=== PATIENT | female | born 1955 | race Caucasian/White ===

== ENCOUNTER → 2024-03-23 12:16 | Outpatient (REF) | payer BC, SELFPAY ==
[2024-03-23 12:58] LABS: % Basophils 0.9 % (0-2); % Eosinophils 2.4 % (0-6); % Immature Granulocytes 0.5 % (0-0.5); % Lymphocytes 40.1 % (20.5-51.1); % Monocytes 9.3 % (1.7-9.3); % Neutrophils 46.8 % (42.2-75.2); Absolute Basophils 0.1 10^3/uL (0-0.2); Absolute Eosinophils 0.2 10^3/uL (0-0.7); Absolute Lymphocytes 2.6 10^3/uL (1.2-3.4); Absolute Monocytes 0.6 10^3/uL (0.1-0.6); Absolute Neutrophils 3.1 10^3/uL (1.4-6.5); Hematocrit 40.2 % (37.0-47.0); Hemoglobin 13.4 g/dL (12.0-16.0); Mean Corp Hgb Conc. 33.3 g/dL (33.0-37.0); Mean Corpuscular Hgb 29.2 pg (27.0-31.0); Mean Corpuscular Volume 87.6 fL (81.0-99.0); Nucleated Red Blood Cells % 0 %; Red Blood Cell Count 4.59 10^6/uL (4.20-5.40); Red Cell Dist. Width 12.9 % (11.5-14.5); White Blood Cell Count 6.5 10^3/uL (4.8-10.8)
[2024-03-23 13:33] LABS: Mean Platelet Volume 11.6 fL (7.4-10.4); Platelet Count 17 10^3/uL (130-400)
== END ==
LOC: REG 12:16
PROVIDERS: ATTENDING PHYSICIAN Student in an Organized Health Care Education/Training Program
DX: D69.3 Immune thrombocytopenic purpura (principal)
CPT/HCPCS: 36415; 85025

== ENCOUNTER → 2024-04-06 09:16 | Outpatient (REF) | payer BC, SELFPAY ==
[2024-04-06 10:07] LABS: % Basophils 0.7 % (0-2); % Eosinophils 2.1 % (0-6); % Immature Granulocytes 0.8 % (0-0.5); % Lymphocytes 26.5 % (20.5-51.1); % Monocytes 9.4 % (1.7-9.3); % Neutrophils 60.5 % (42.2-75.2); Absolute Basophils 0.1 10^3/uL (0-0.2); Absolute Eosinophils 0.2 10^3/uL (0-0.7); Absolute Immature Granulocytes 0.1 10^3/uL (0-0.05); Absolute Lymphocytes 2.3 10^3/uL (1.2-3.4); Absolute Monocytes 0.8 10^3/uL (0.1-0.6); Absolute Neutrophils 5.3 10^3/uL (1.4-6.5); Hematocrit 41.7 % (37.0-47.0); Hemoglobin 13.7 g/dL (12.0-16.0); Mean Corp Hgb Conc. 32.9 g/dL (33.0-37.0); Mean Corpuscular Volume 88.3 fL (81.0-99.0); Mean Platelet Volume 10.4 fL (7.4-10.4); Nucleated Red Blood Cells % 0 %; Platelet Count 47 10^3/uL (130-400); Red Blood Cell Count 4.72 10^6/uL (4.20-5.40); Red Cell Dist. Width 13.3 % (11.5-14.5); White Blood Cell Count 8.7 10^3/uL (4.8-10.8)
== END ==
LOC: REG 09:16
PROVIDERS: ATTENDING PHYSICIAN Internal Medicine Hematology & Oncology; FAMILY PHYSICIAN Family Medicine
DX: D69.49 Other primary thrombocytopenia (principal); C91.Z0 Other lymphoid leukemia not having achieved remission
CPT/HCPCS: 36415; 85025

== ENCOUNTER → 2024-04-13 10:06 | Outpatient (REF) | payer BC, SELFPAY ==
[2024-04-13 10:55] LABS: % Basophils 1.2 % (0-2); % Eosinophils 2.7 % (0-6); % Immature Granulocytes 0.5 % (0-0.5); % Lymphocytes 33.3 % (20.5-51.1); % Monocytes 7.5 % (1.7-9.3); % Neutrophils 54.8 % (42.2-75.2); Absolute Basophils 0.1 10^3/uL (0-0.2); Absolute Eosinophils 0.2 10^3/uL (0-0.7); Absolute Monocytes 0.5 10^3/uL (0.1-0.6); Absolute Neutrophils 3.3 10^3/uL (1.4-6.5); Hematocrit 39.4 % (37.0-47.0); Hemoglobin 13.5 g/dL (12.0-16.0); Mean Corp Hgb Conc. 34.3 g/dL (33.0-37.0); Mean Corpuscular Hgb 29.4 pg (27.0-31.0); Mean Corpuscular Volume 85.8 fL (81.0-99.0); Nucleated Red Blood Cells % 0 %; Red Blood Cell Count 4.59 10^6/uL (4.20-5.40); Red Cell Dist. Width 13.5 % (11.5-14.5)
[2024-04-13 11:25] LABS: Mean Platelet Volume 12.3 fL (7.4-10.4)
[2024-04-13 11:38] LABS: Platelet Count 25 10^3/uL (130-400)
== END ==
LOC: REG 10:06
PROVIDERS: ATTENDING PHYSICIAN Internal Medicine Hematology & Oncology
DX: D69.49 Other primary thrombocytopenia (principal); C91.Z0 Other lymphoid leukemia not having achieved remission
CPT/HCPCS: 36415; 85025

== ENCOUNTER → 2024-04-25 08:22 | Outpatient (REF) | payer BC, SELFPAY ==
[2024-04-25 10:22] LABS: % Basophils 0.9 % (0-2); % Eosinophils 2.9 % (0-6); % Immature Granulocytes 1.7 % (0-0.5); % Lymphocytes 33.2 % (20.5-51.1); % Monocytes 8.4 % (1.7-9.3); % Neutrophils 52.9 % (42.2-75.2); Absolute Basophils 0.1 10^3/uL (0-0.2); Absolute Eosinophils 0.2 10^3/uL (0-0.7); Absolute Immature Granulocytes 0.1 10^3/uL (0-0.05); Absolute Lymphocytes 2.5 10^3/uL (1.2-3.4); Absolute Monocytes 0.6 10^3/uL (0.1-0.6); Hematocrit 39.7 % (37.0-47.0); Hemoglobin 13.4 g/dL (12.0-16.0); Mean Corp Hgb Conc. 33.8 g/dL (33.0-37.0); Mean Corpuscular Hgb 29.3 pg (27.0-31.0); Mean Corpuscular Volume 86.7 fL (81.0-99.0); Nucleated Red Blood Cells % 0 %; Platelet Count 472 10^3/uL (130-400); Red Blood Cell Count 4.58 10^6/uL (4.20-5.40); Red Cell Dist. Width 13.6 % (11.5-14.5); White Blood Cell Count 7.5 10^3/uL (4.8-10.8)
== END ==
LOC: REG 08:22
PROVIDERS: ATTENDING PHYSICIAN Internal Medicine Hematology & Oncology; FAMILY PHYSICIAN Family Medicine
DX: D69.49 Other primary thrombocytopenia (principal); C91.Z0 Other lymphoid leukemia not having achieved remission
CPT/HCPCS: 36415; 85025

== ENCOUNTER → 2024-04-27 08:37 | Outpatient (REF) | payer BC, SELFPAY ==
[2024-04-27 13:05] LABS: % Basophils 1.4 % (0-2); % Eosinophils 2.9 % (0-6); % Immature Granulocytes 0.8 % (0-0.5); % Lymphocytes 33.3 % (20.5-51.1); % Monocytes 9.1 % (1.7-9.3); % Neutrophils 52.5 % (42.2-75.2); Absolute Basophils 0.1 10^3/uL (0-0.2); Absolute Eosinophils 0.2 10^3/uL (0-0.7); Absolute Immature Granulocytes 0.1 10^3/uL (0-0.05); Absolute Lymphocytes 2.1 10^3/uL (1.2-3.4); Absolute Monocytes 0.6 10^3/uL (0.1-0.6); Absolute Neutrophils 3.3 10^3/uL (1.4-6.5); Hematocrit 40.6 % (37.0-47.0); Hemoglobin 13.1 g/dL (12.0-16.0); Mean Corp Hgb Conc. 32.3 g/dL (33.0-37.0); Mean Corpuscular Hgb 28.7 pg (27.0-31.0); Mean Corpuscular Volume 88.8 fL (81.0-99.0); Mean Platelet Volume 9.4 fL (7.4-10.4); Nucleated Red Blood Cells % 0 %; Platelet Count 473 10^3/uL (130-400); Red Blood Cell Count 4.57 10^6/uL (4.20-5.40); Red Cell Dist. Width 13.5 % (11.5-14.5); White Blood Cell Count 6.3 10^3/uL (4.8-10.8)
== END ==
LOC: HWLAB 08:37
PROVIDERS: ATTENDING PHYSICIAN Internal Medicine Hematology & Oncology; FAMILY PHYSICIAN Family Medicine
DX: D69.49 Other primary thrombocytopenia (principal); C91.Z0 Other lymphoid leukemia not having achieved remission
CPT/HCPCS: 36415; 85025

== ENCOUNTER → 2024-05-05 09:48 | Outpatient (REF) | payer BC, SELFPAY ==
[2024-05-05 10:55] LABS: % Basophils 0.6 % (0-2); % Eosinophils 1.4 % (0-6); % Immature Granulocytes 0.5 % (0-0.5); % Lymphocytes 23.8 % (20.5-51.1); % Monocytes 7.8 % (1.7-9.3); % Neutrophils 65.9 % (42.2-75.2); Absolute Basophils 0.1 10^3/uL (0-0.2); Absolute Eosinophils 0.2 10^3/uL (0-0.7); Absolute Immature Granulocytes 0.1 10^3/uL (0-0.05); Absolute Lymphocytes 2.6 10^3/uL (1.2-3.4); Absolute Monocytes 0.9 10^3/uL (0.1-0.6); Absolute Neutrophils 7.2 10^3/uL (1.4-6.5); Hematocrit 40.9 % (37.0-47.0); Hemoglobin 14.2 g/dL (12.0-16.0); Mean Corp Hgb Conc. 34.7 g/dL (33.0-37.0); Mean Corpuscular Hgb 29.5 pg (27.0-31.0); Nucleated Red Blood Cells % 0 %; Red Blood Cell Count 4.81 10^6/uL (4.20-5.40); Red Cell Dist. Width 13.2 % (11.5-14.5); White Blood Cell Count 10.9 10^3/uL (4.8-10.8)
[2024-05-05 11:34] LABS: Mean Platelet Volume 10.9 fL (7.4-10.4); Platelet Count 42 10^3/uL (130-400)
== END ==
LOC: REG 09:48
PROVIDERS: ATTENDING PHYSICIAN Internal Medicine Hematology & Oncology; FAMILY PHYSICIAN Family Medicine
DX: D69.49 Other primary thrombocytopenia (principal); C91.Z0 Other lymphoid leukemia not having achieved remission
CPT/HCPCS: 36415; 85025

== ENCOUNTER → 2024-05-12 09:33 | Outpatient (REF) | payer BC, SELFPAY ==
[2024-05-12 11:38] LABS: % Basophils 1.4 % (0-2); % Eosinophils 3.9 % (0-6); % Immature Granulocytes 0.5 % (0-0.5); % Lymphocytes 36.7 % (20.5-51.1); % Monocytes 10.7 % (1.7-9.3); % Neutrophils 46.8 % (42.2-75.2); Absolute Basophils 0.1 10^3/uL (0-0.2); Absolute Eosinophils 0.2 10^3/uL (0-0.7); Absolute Lymphocytes 2.2 10^3/uL (1.2-3.4); Absolute Monocytes 0.6 10^3/uL (0.1-0.6); Absolute Neutrophils 2.8 10^3/uL (1.4-6.5); Hemoglobin 13.3 g/dL (12.0-16.0); Mean Corpuscular Hgb 29.3 pg (27.0-31.0); Mean Corpuscular Volume 83.7 fL (81.0-99.0); Mean Platelet Volume 12.8 fL (7.4-10.4); Nucleated Red Blood Cells % 0 %; Platelet Count 58 10^3/uL (130-400); Red Blood Cell Count 4.54 10^6/uL (4.20-5.40); Red Cell Dist. Width 13.2 % (11.5-14.5); White Blood Cell Count 5.9 10^3/uL (4.8-10.8)
== END ==
LOC: HWLAB 09:33
PROVIDERS: ATTENDING PHYSICIAN Internal Medicine Hematology & Oncology; FAMILY PHYSICIAN Family Medicine
DX: D69.49 Other primary thrombocytopenia (principal); C91.Z0 Other lymphoid leukemia not having achieved remission
CPT/HCPCS: 36415; 85025

== ENCOUNTER → 2024-05-24 08:16 | Outpatient (REF) | payer BC, SELFPAY ==
[2024-05-24 12:25] LABS: % Basophils 0.8 % (0-2); % Eosinophils 2.7 % (0-6); % Immature Granulocytes 0.5 % (0-0.5); % Lymphocytes 33.1 % (20.5-51.1); % Monocytes 8.6 % (1.7-9.3); % Neutrophils 54.3 % (42.2-75.2); Absolute Basophils 0.1 10^3/uL (0-0.2); Absolute Eosinophils 0.2 10^3/uL (0-0.7); Absolute Lymphocytes 2.1 10^3/uL (1.2-3.4); Absolute Monocytes 0.5 10^3/uL (0.1-0.6); Absolute Neutrophils 3.4 10^3/uL (1.4-6.5); Hematocrit 40.3 % (37.0-47.0); Hemoglobin 13.9 g/dL (12.0-16.0); Mean Corp Hgb Conc. 34.5 g/dL (33.0-37.0); Mean Corpuscular Hgb 29.3 pg (27.0-31.0); Mean Corpuscular Volume 84.8 fL (81.0-99.0); Mean Platelet Volume 10.2 fL (7.4-10.4); Nucleated Red Blood Cells % 0 %; Platelet Count 149 10^3/uL (130-400); Red Blood Cell Count 4.75 10^6/uL (4.20-5.40); Red Cell Dist. Width 13.3 % (11.5-14.5); White Blood Cell Count 6.3 10^3/uL (4.8-10.8)
== END ==
LOC: REG 08:16
PROVIDERS: ATTENDING PHYSICIAN Internal Medicine Hematology & Oncology; FAMILY PHYSICIAN Family Medicine
DX: D69.49 Other primary thrombocytopenia (principal); C91.Z0 Other lymphoid leukemia not having achieved remission
CPT/HCPCS: 36415; 85025

== ENCOUNTER → 2024-06-07 09:01 | Outpatient (REF) | payer BC, SELFPAY ==
[2024-06-07 10:17] LABS: % Basophils 1.2 % (0-2); % Eosinophils 3.4 % (0-6); % Immature Granulocytes 0.7 % (0-0.5); % Lymphocytes 32.1 % (20.5-51.1); % Monocytes 9.4 % (1.7-9.3); % Neutrophils 53.2 % (42.2-75.2); Absolute Basophils 0.1 10^3/uL (0-0.2); Absolute Eosinophils 0.3 10^3/uL (0-0.7); Absolute Immature Granulocytes 0.1 10^3/uL (0-0.05); Absolute Lymphocytes 2.4 10^3/uL (1.2-3.4); Absolute Monocytes 0.7 10^3/uL (0.1-0.6); Hematocrit 40.8 % (37.0-47.0); Hemoglobin 13.9 g/dL (12.0-16.0); Mean Corp Hgb Conc. 34.1 g/dL (33.0-37.0); Nucleated Red Blood Cells % 0 %; Red Cell Dist. Width 13.2 % (11.5-14.5); White Blood Cell Count 7.6 10^3/uL (4.8-10.8)
[2024-06-07 10:51] LABS: Mean Platelet Volume 12.2 fL (7.4-10.4); Platelet Count 38 10^3/uL (130-400)
== END ==
LOC: REG 09:01
PROVIDERS: ATTENDING PHYSICIAN Internal Medicine Hematology & Oncology; FAMILY PHYSICIAN Family Medicine
DX: D69.49 Other primary thrombocytopenia (principal); C91.Z0 Other lymphoid leukemia not having achieved remission
CPT/HCPCS: 36415; 85025

== ENCOUNTER → 2024-06-16 06:33 | Outpatient (REF) | payer BC, SELFPAY ==
[2024-06-16 07:47] LABS: % Basophils 1.1 % (0-2); % Eosinophils 3.4 % (0-6); % Immature Granulocytes 0.7 % (0-0.5); % Lymphocytes 27.9 % (20.5-51.1); % Monocytes 7.7 % (1.7-9.3); % Neutrophils 59.2 % (42.2-75.2); Absolute Basophils 0.1 10^3/uL (0-0.2); Absolute Eosinophils 0.2 10^3/uL (0-0.7); Absolute Immature Granulocytes 0.1 10^3/uL (0-0.05); Absolute Monocytes 0.6 10^3/uL (0.1-0.6); Absolute Neutrophils 4.2 10^3/uL (1.4-6.5); Hematocrit 41.9 % (37.0-47.0); Hemoglobin 14.5 g/dL (12.0-16.0); Mean Corp Hgb Conc. 34.6 g/dL (33.0-37.0); Mean Corpuscular Hgb 29.4 pg (27.0-31.0); Mean Platelet Volume 11.2 fL (7.4-10.4); Nucleated Red Blood Cells % 0 %; Platelet Count 102 10^3/uL (130-400); Red Blood Cell Count 4.93 10^6/uL (4.20-5.40); Red Cell Dist. Width 13.4 % (11.5-14.5); White Blood Cell Count 7.1 10^3/uL (4.8-10.8)
[2024-06-16 08:31] LABS: ALT (SGPT) 32 U/L (0-35); AST (SGOT) 32 U/L (14-36); Albumin 4.4 g/dl (3.5-5.0); Alkaline Phosphatase 73 U/L (38-126); Blood Urea Nitrogen 12 mg/dl (7-17); Calcium 9.6 mg/dl (8.4-10.2); Carbon Dioxide 26 mmol/L (22-30); Chloride 106 mmol/L (98-107); Glucose 108 mg/dl (70-99); HDL Cholesterol 60 mg/dl; LDL Cholesterol, Calculated 130 mg/dl; Potassium 4.6 mmol/L (3.5-5.1); Sodium 138 mmol/L (135-145); Total Bilirubin 1.4 mg/dl (0.2-1.3); Total Cholesterol 209 mg/dl (50-199); Total Protein 6.9 g/dl (6.3-8.2); Triglyceride 98 mg/dl (10-149); Very Low Density Lipoprotein 19 mg/dl (0-30); eGFR > 60.00
[2024-06-16 08:38] LABS: TSH Reflex To Free T4 2.05 uIU/ml (0.47-4.68)
[2024-06-16 12:23] LABS: Glycohemoglobin (HgbA1c) 5.2 % (4.0-5.6)
== END ==
LOC: REG 06:33
PROVIDERS: ATTENDING PHYSICIAN Student in an Organized Health Care Education/Training Program; FAMILY PHYSICIAN Family Medicine
DX: Z00.01 Encounter for general adult medical examination with abnormal findings (principal); D69.3 Immune thrombocytopenic purpura; E03.9 Hypothyroidism, unspecified
CPT/HCPCS: 36415; 80053; 80061; 83036; 84443; 85025

== ENCOUNTER → 2024-06-29 14:13 | Outpatient (REF) | payer BC, SELFPAY ==
[2024-06-29 15:42] LABS: % Basophils 1.2 % (0-2); % Eosinophils 3.7 % (0-6); % Immature Granulocytes 0.5 % (0-0.5); % Lymphocytes 34.8 % (20.5-51.1); % Monocytes 9.2 % (1.7-9.3); % Neutrophils 50.6 % (42.2-75.2); Absolute Basophils 0.1 10^3/uL (0-0.2); Absolute Eosinophils 0.2 10^3/uL (0-0.7); Absolute Lymphocytes 2.3 10^3/uL (1.2-3.4); Absolute Monocytes 0.6 10^3/uL (0.1-0.6); Absolute Neutrophils 3.3 10^3/uL (1.4-6.5); Hematocrit 40.7 % (37.0-47.0); Hemoglobin 14.2 g/dL (12.0-16.0); Mean Corp Hgb Conc. 34.9 g/dL (33.0-37.0); Mean Corpuscular Hgb 30.7 pg (27.0-31.0); Mean Corpuscular Volume 87.9 fL (81.0-99.0); Mean Platelet Volume 12.7 fL (7.4-10.4); Nucleated Red Blood Cells % 0 %; Platelet Count 37 10^3/uL (130-400); Red Blood Cell Count 4.63 10^6/uL (4.20-5.40); Red Cell Dist. Width 13.2 % (11.5-14.5); White Blood Cell Count 6.5 10^3/uL (4.8-10.8)
[2024-06-29 15:51] LABS: ALT (SGPT) 30 U/L (0-35); AST (SGOT) 33 U/L (14-36); Albumin 4.2 g/dl (3.5-5.0); Alkaline Phosphatase 76 U/L (38-126); Blood Urea Nitrogen 12 mg/dl (7-17); Calcium 9.6 mg/dl (8.4-10.2); Carbon Dioxide 28 mmol/L (22-30); Chloride 103 mmol/L (98-107); Glucose 97 mg/dl (70-99); Potassium 3.9 mmol/L (3.5-5.1); Sodium 140 mmol/L (135-145); Total Bilirubin 0.8 mg/dl (0.2-1.3); Total Protein 6.6 g/dl (6.3-8.2); eGFR > 60.00
== END ==
LOC: REG 14:13
PROVIDERS: ATTENDING PHYSICIAN Internal Medicine Hematology & Oncology; FAMILY PHYSICIAN Family Medicine
DX: D69.49 Other primary thrombocytopenia (principal); C91.Z0 Other lymphoid leukemia not having achieved remission
CPT/HCPCS: 36415; 80053; 85025

== ENCOUNTER → 2024-07-14 08:57 | Outpatient (REF) | payer BC, SELFPAY ==
[2024-07-14 12:49] LABS: % Basophils 1.5 % (0-2); % Eosinophils 3.5 % (0-6); % Immature Granulocytes 0.7 % (0-0.5); % Lymphocytes 27.2 % (20.5-51.1); % Monocytes 8.9 % (1.7-9.3); % Neutrophils 58.2 % (42.2-75.2); Absolute Basophils 0.1 10^3/uL (0-0.2); Absolute Eosinophils 0.2 10^3/uL (0-0.7); Absolute Lymphocytes 1.7 10^3/uL (1.2-3.4); Absolute Monocytes 0.5 10^3/uL (0.1-0.6); Absolute Neutrophils 3.5 10^3/uL (1.4-6.5); Hemoglobin 14.5 g/dL (12.0-16.0); Mean Corp Hgb Conc. 34.5 g/dL (33.0-37.0); Mean Corpuscular Hgb 30.1 pg (27.0-31.0); Mean Corpuscular Volume 87.1 fL (81.0-99.0); Mean Platelet Volume 11.7 fL (7.4-10.4); Nucleated Red Blood Cells % 0 %; Platelet Count 126 10^3/uL (130-400); Red Blood Cell Count 4.82 10^6/uL (4.20-5.40); White Blood Cell Count 6.1 10^3/uL (4.8-10.8)
== END ==
LOC: HWLAB 08:57
PROVIDERS: ATTENDING PHYSICIAN Internal Medicine Hematology & Oncology; FAMILY PHYSICIAN Family Medicine
DX: D69.49 Other primary thrombocytopenia (principal); C91.Z0 Other lymphoid leukemia not having achieved remission
CPT/HCPCS: 36415; 85025

== ENCOUNTER → 2024-07-28 12:20 | Outpatient (REF) | payer BC, SELFPAY ==
[2024-07-28 14:07] LABS: % Basophils 1.2 % (0-2); % Eosinophils 3.2 % (0-6); % Immature Granulocytes 0.9 % (0-0.5); % Lymphocytes 25.6 % (20.5-51.1); % Monocytes 7.1 % (1.7-9.3); Absolute Basophils 0.1 10^3/uL (0-0.2); Absolute Eosinophils 0.3 10^3/uL (0-0.7); Absolute Immature Granulocytes 0.1 10^3/uL (0-0.05); Absolute Monocytes 0.6 10^3/uL (0.1-0.6); Absolute Neutrophils 4.8 10^3/uL (1.4-6.5); Hematocrit 41.1 % (37.0-47.0); Mean Corp Hgb Conc. 34.1 g/dL (33.0-37.0); Mean Corpuscular Hgb 29.1 pg (27.0-31.0); Mean Corpuscular Volume 85.4 fL (81.0-99.0); Nucleated Red Blood Cells % 0 %; Platelet Count 49 10^3/uL (130-400); Red Blood Cell Count 4.81 10^6/uL (4.20-5.40); Red Cell Dist. Width 13.2 % (11.5-14.5); White Blood Cell Count 7.8 10^3/uL (4.8-10.8)
== END ==
LOC: REG 12:20
PROVIDERS: ATTENDING PHYSICIAN Internal Medicine Hematology & Oncology; FAMILY PHYSICIAN Family Medicine
DX: D69.49 Other primary thrombocytopenia (principal); C91.Z0 Other lymphoid leukemia not having achieved remission
CPT/HCPCS: 36415; 85025

== ENCOUNTER → 2024-08-03 13:54 | Outpatient (REF) | payer BC, SELFPAY ==
[2024-08-03 16:16] LABS: % Basophils 1.2 % (0-2); % Eosinophils 3.5 % (0-6); % Immature Granulocytes 0.6 % (0-0.5); % Lymphocytes 25.1 % (20.5-51.1); % Neutrophils 63.6 % (42.2-75.2); Absolute Basophils 0.1 10^3/uL (0-0.2); Absolute Eosinophils 0.3 10^3/uL (0-0.7); Absolute Lymphocytes 1.8 10^3/uL (1.2-3.4); Absolute Monocytes 0.4 10^3/uL (0.1-0.6); Absolute Neutrophils 4.6 10^3/uL (1.4-6.5); Hematocrit 40.1 % (37.0-47.0); Hemoglobin 13.5 g/dL (12.0-16.0); Mean Corp Hgb Conc. 33.7 g/dL (33.0-37.0); Mean Corpuscular Hgb 28.6 pg (27.0-31.0); Mean Platelet Volume 12.3 fL (7.4-10.4); Nucleated Red Blood Cells % 0 %; Platelet Count 99 10^3/uL (130-400); Red Blood Cell Count 4.72 10^6/uL (4.20-5.40); Red Cell Dist. Width 13.2 % (11.5-14.5); White Blood Cell Count 7.2 10^3/uL (4.8-10.8)
== END ==
LOC: REG 13:54
PROVIDERS: ATTENDING PHYSICIAN Internal Medicine Hematology & Oncology; FAMILY PHYSICIAN Family Medicine
DX: D69.49 Other primary thrombocytopenia (principal); C91.Z0 Other lymphoid leukemia not having achieved remission
CPT/HCPCS: 36415; 85025

== ENCOUNTER → 2024-08-17 14:36 | Outpatient (REF) | payer BC, SELFPAY ==
[2024-08-17 16:05] LABS: % Basophils 1.2 % (0-2); % Eosinophils 3.4 % (0-6); % Immature Granulocytes 0.9 % (0-0.5); % Lymphocytes 29.8 % (20.5-51.1); % Monocytes 9.8 % (1.7-9.3); % Neutrophils 54.9 % (42.2-75.2); Absolute Basophils 0.1 10^3/uL (0-0.2); Absolute Eosinophils 0.3 10^3/uL (0-0.7); Absolute Immature Granulocytes 0.1 10^3/uL (0-0.05); Absolute Lymphocytes 2.3 10^3/uL (1.2-3.4); Absolute Monocytes 0.8 10^3/uL (0.1-0.6); Absolute Neutrophils 4.2 10^3/uL (1.4-6.5); Hematocrit 41.2 % (37.0-47.0); Mean Corpuscular Hgb 29.6 pg (27.0-31.0); Mean Corpuscular Volume 87.1 fL (81.0-99.0); Nucleated Red Blood Cells % 0 %; Red Blood Cell Count 4.73 10^6/uL (4.20-5.40); Red Cell Dist. Width 13.2 % (11.5-14.5); White Blood Cell Count 7.7 10^3/uL (4.8-10.8)
[2024-08-17 16:51] LABS: Platelet Count 18 10^3/uL (130-400)
== END ==
LOC: REG 14:36
PROVIDERS: ATTENDING PHYSICIAN Internal Medicine Hematology & Oncology; FAMILY PHYSICIAN Family Medicine
DX: D69.49 Other primary thrombocytopenia (principal); C91.Z0 Other lymphoid leukemia not having achieved remission
CPT/HCPCS: 36415; 85025

== ENCOUNTER 2024-09-07 10:12 | Emergency (ER) | payer BC, SELFPAY ==
[2024-09-07 10:28] VITALS: BP 113/67
--- NOTE | 2024-09-07 10:50 | EDRN ---
Elton WAN currently at the pts bedside
--- NOTE | 2024-09-07 10:59 | ED.GENMED ---
History of Present Illness
General
Chief Complaint: Abdominal Symptoms
Source: patient and spouse
Exam Limitations: none
Time Seen by Provider: 09/07/24 10:31
Nursing documentation reviewed up to this point in time: agreed with
History of Present Illness
History of Present Illness:
69-year-old female with past medical history of A-fib status post ablation, remote history of seizures presenting to the emergency department today with concerns of generalized fatigue body aches nausea vomiting headache over the past 3 days.
Initially had some mild diarrhea which is since resolved. Denies any chest pain palpitations. Significant decrease in oral intake over the past few days as well.
Past History
Past History
ED Past Medical History: Arrthythmia and Hypothyroidism
ED Past Surgical History: Appendectomy, Orthopedic and Other
Social History
Tobacco: Non-smoker
Alcohol: None
Drug: None
Personal:
Living: with family
Employment: Employed
Family History
Family History: CAD
Review of Systems
Review of Systems
Allergies reviewed?: Yes
All Other Systems: ROS reviewed and negative except as documented in HPI and ROS
Phy Exam
Physical Exam
Physical Exam:
GENERAL: Alert , in no apparent distress
EYE: pupils equal and reactive
NECK: Supple, no significant adenopathy.
ENT: o/p clr, mmm.
CARDIAC: Regular rate and rhythm .
LUNGS: Clear breath sounds bilaterally, no acute respiratory distress, no wheezes/rales/rhonchi
ABDOMEN: Soft, without focal tenderness, no r/g, no cvat
NEUROLOGICAL: Alert and oriented, no focal neuro deficits
SKIN: Warm and dry, skin intact.
MUSCULOSKELETAL: No edema, well perfused.
PSYCH: Normal and appropriate interaction.
Course
Orders/Labs/Results
Orders:
Orders
09/07/24 10:55
0.9% Sodium Chloride 1000 ml [Nss] 1,000 ml IV BOLUS
Famotidine [Pepcid] 20 mg IV NOW STA
Ondansetron Injectable [Zofran] 4 mg IV NOW STA
09/07/24 10:56
Electrocardiogram (*1) Stat
Reason for Study: Abdominal Pain
EKG- Treatment ONCE
09/07/24 11:12
Complete Blood Count/With Diff Urgent
Comprehensive Metabolic Panel Urgent
Lipase Urgent
Urinalysis Reflex To Culture Urgent
Date Specimen was Collected: 09/07/24
Time Specimen was Collected: 11:05
Urine Microscopic Reflex Cult Urgent
Urine Culture Urgent
LEANNE Source: U
Specimen Description:
Date Specimen was Collected: 09/07/24
Time Specimen was Collected: 11:05
09/07/24 11:36
Metoclopramide [Reglan] 10 mg IV NOW STA
09/07/24 13:12
Prednisone [Deltasone] 60 mg PO NOW STA
09/07/24 14:01
Diphenhydramine [Benadryl] 25 mg IV NOW STA
Abnormal Lab Results
09/07/24
11:12
Plt Count 6 L* 10^3/uL
(130-400)
Abs Immat Gran (auto) 0.1 H 10^3/uL
(0-0.05)
Absolute Lymphs (auto) 1.0 L 10^3/uL
(1.2-3.4)
Absolute Monos (auto) 0.8 H 10^3/uL
(0.1-0.6)
Immature Gran % 0.6 H %
(0-0.5)
Neutrophils % 76.0 H %
(42.2-75.2)
Lymphocytes % 11.7 L %
(20.5-51.1)
Monocytes % 9.4 H %
(1.7-9.3)
Glucose 117 H mg/dl
(70-99)
Total Bilirubin 1.4 H mg/dl
(0.2-1.3)
Ur Occult Blood Reflex 4+ A
(Negative)
Leukocyte Esterase Rfl 2+ A
(Negative)
Urine RBC 7-10 A /HPF
(0-2)
Urine WBC (Reflex) 11-15 A /HPF
(0-5)
09/07/24 11:12
09/07/24 11:12
Vital Signs
Initial and Last Documented VS:
Initial Vital Signs
Temp Pulse Resp BP Pulse Ox
98.8 F 87 16 113/67 98
09/07/24 10:28 09/07/24 10:28 09/07/24 10:28 09/07/24 10:28 09/07/24 10:28
Last Documented Vital Signs
Temp Pulse Resp BP Pulse Ox
98.8 F 72 20 104/58 100
09/07/24 10:28 09/07/24 13:00 09/07/24 13:00 09/07/24 13:00 09/07/24 13:15
MDM/Problems Addressed
MDM/Problems Addressed:
69-year-old female presenting to the emergency department today with concerns of generalized fatigue weakness nausea vomiting headache mild cough over the past 3 days. Difficulty tolerating anything by mouth. Spoke with her primary care doctor
they recommend he go to the ER for assessment and potential IV fluids. Patient here with improvement after Zofran 4-year-old patient's labs showing platelet count of 6. Does of a history of ITP has been somewhat better in the past. Case was
discussed with hematology that recommended starting steroids. Otherwise not recommending platelet transfusion without active bleeding. No evidence of active bleeding at this time. This was discussed with the patient who demonstrated understanding
and agreement. Patient otherwise able to tolerate by mouth here stable for discharge and close outpatient follow-up. Return precautions given.
*Critical Care Note
Total Time (30-74mins, 75-104mins- exclusive of procedures): Not Applicable
ED Attending Note
-
Portions of this chart may have been created with voice recognition software.� Occasional wrong word or��sound alike� substitutions may have occurred due to the inherent limitations of voice recognition software.
Discharge Plan
Departure
Patient Disposition: Home (Routine Discharge)
Date of Disposition: 09/07/24
Time of Disposition: 15:44
Patient with high blood pressure during this ER visit?: No
Condition: Good
Covid-19: Not Applicable
Discharge Problem:
Nausea & vomiting, Thrombocytopenia
Instructions: Immune thrombocytopenia (ITP), Nausea and Vomiting, Adult (DC)
Prescriptions:
New
ondansetron 4 mg tablet,disintegrating
4 mg PO Q6H PRN (Reason: nausea and vomiting) Qty: 7 0RF
prednisone 20 mg tablet
60 mg PO DAILY 4 Days Qty: 12 0RF
No Action
levothyroxine 75 mcg Tablet
75 mcg PO DAILY
acetaminophen [Tylenol] 325 mg Tablet
650 mg PO Q4HPRN PRN (Reason: mild pain)
ondansetron HCl [Zofran] 4 mg Tablet
4 mg PO Q6HPRN PRN (Reason: nausea)
Rituxan 10 mg/mL Concentrate
0 mg IV Q4W
magnesium oxide 400 mg magnesium Tablet
400 mg PO DAILY
Referrals:
Martín Vasquez DO [Family Provider] -
Activity Restrictions/Additional Instructions:
You came to the emergency department today with concerns of nausea and vomiting. Here symptoms were improved with IV nausea medications. You are also found to have a platelet level of 6000. This was discussed with your longwall foreman. Please take
prednisone 60 mg once daily for the next 4 days and follow-up closely with your outpatient team for further management of this. Return to the emergency department for any worsening, new or concerning symptoms.
Interventions
Interventions:
*Risk Screen - Suicide Last Done: 09/07/24 10:28
*General Assessment Last Done: 09/07/24 11:22
*Neglect/Abuse Screening Last Done: 09/07/24 10:28
ED- Fall Risk Assessment Last Done: 09/07/24 11:22
*ED COVID-19 Vaccine History Last Done: 09/07/24 11:22
YJ-Fineya-Alwrhqbwpq Assessment Last Done: 09/07/24 11:22
Discharge Date and Time
Print Language: UZBEK
[2024-09-07 11:11] VITALS: BP 109/69
[2024-09-07 11:15] VITALS: BMI 29.6
[2024-09-07] MEDS: NSS 1000 IV (11:16)
[2024-09-07] MEDS: ZOFRAN 4 MG IV (11:16)
[2024-09-07] MEDS: PEPCID 20 MG IV (11:16)
[2024-09-07 11:22] LABS: % Basophils 0.7 % (0-2); % Eosinophils 1.6 % (0-6); % Immature Granulocytes 0.6 % (0-0.5); % Lymphocytes 11.7 % (20.5-51.1); % Monocytes 9.4 % (1.7-9.3); Absolute Basophils 0.1 10^3/uL (0-0.2); Absolute Eosinophils 0.1 10^3/uL (0-0.7); Absolute Immature Granulocytes 0.1 10^3/uL (0-0.05); Absolute Monocytes 0.8 10^3/uL (0.1-0.6); Absolute Neutrophils 6.3 10^3/uL (1.4-6.5); Hematocrit 39.9 % (37.0-47.0); Hemoglobin 13.6 g/dL (12.0-16.0); Mean Corp Hgb Conc. 34.1 g/dL (33.0-37.0); Mean Corpuscular Hgb 28.6 pg (27.0-31.0); Mean Corpuscular Volume 83.8 fL (81.0-99.0); Nucleated Red Blood Cells % 0 %; Red Blood Cell Count 4.76 10^6/uL (4.20-5.40); Red Cell Dist. Width 13.2 % (11.5-14.5); Urine Albumin Trace (Neg - Trace); Urine Bilirubin Negative (Negative); Urine Character Clear (Clear); Urine Color Yellow; Urine Glucose Negative (Negative); Urine Ketone Negative (Negative); Urine Leukocyte 2+ (Negative); Urine Nitrite Negative (Negative); Urine Occult Blood 4+ (Negative); Urine Specific Gravity 1.025 (<1.030); Urine Urobilinogen 1+ (Neg - 1+); White Blood Cell Count 8.2 10^3/uL (4.8-10.8)
[2024-09-07 11:33] LABS: ALT (SGPT) 26 U/L (0-35); AST (SGOT) 23 U/L (14-36); Alkaline Phosphatase 60 U/L (38-126); Blood Urea Nitrogen 10 mg/dl (7-17); Carbon Dioxide 28 mmol/L (22-30); Estimated Creatinine Clearance 92 ml/min; Glucose 117 mg/dl (70-99); Lipase 69 U/L (23-300); Total Bilirubin 1.4 mg/dl (0.2-1.3); Total Protein 6.6 g/dl (6.3-8.2); eGFR > 60.00
[2024-09-07 11:42] LABS: Chloride 102 mmol/L (98-107); Potassium 4.1 mmol/L (3.5-5.1); Sodium 141 mmol/L (135-145)
[2024-09-07 11:45] LABS: Platelet Count 6 10^3/uL (130-400)
[2024-09-07] MEDS: REGLAN 10 MG IV (11:49)
[2024-09-07 11:53] LABS: Urine Amorphous Seen; Urine Mucus Many; Urine Squamous Cell >30 /LPF (Few)
[2024-09-07 12:00] VITALS: BP 137/73
[2024-09-07 12:33] VITALS: BP 137/73
--- NOTE | 2024-09-07 12:33 | EDRN ---
the pt is sleeping in stretcher in the lowest position, side rails up x2, call browning within reach, HOB elevated, no s/s of distress, no c/o headache, no c/o nausea, VS WNL, the pts is currently at the pts bedside, awaiting for the provider to
come back to the pts bedside, will continue to monitor the pt closely
[2024-09-07 13:00] VITALS: BP 104/58
[2024-09-07] MEDS: BENADRYL 25 MG IV (14:14)
[2024-09-07] MEDS: DELTASONE 60 MG PO (14:14)
== END 2024-09-07 16:05 | disposition home or self-care (01) ==
LOC: EMR 10:12
PROVIDERS: Physician Assistant; EMERGENCY PHYSICIAN Emergency Medicine; FAMILY PHYSICIAN Family Medicine
DX: D69.6 Thrombocytopenia, unspecified (principal); R11.2 Nausea with vomiting, unspecified; I48.91 Unspecified atrial fibrillation
CPT/HCPCS: 99284; 96374; 96375 ×3; 96361; 80053; 81003; 81015; 83690; 85025; 87086; 93005

== ENCOUNTER → 2024-09-25 09:10 | Outpatient (REF) | payer BC, SELFPAY ==
[2024-09-25 10:30] LABS: % Basophils 0.3 % (0-2); % Eosinophils 0.4 % (0-6); % Immature Granulocytes 1.7 % (0-0.5); % Lymphocytes 6.8 % (20.5-51.1); % Monocytes 2.9 % (1.7-9.3); % Neutrophils 87.9 % (42.2-75.2); Absolute Basophils 0.1 10^3/uL (0-0.2); Absolute Eosinophils 0.1 10^3/uL (0-0.7); Absolute Immature Granulocytes 0.3 10^3/uL (0-0.05); Absolute Monocytes 0.4 10^3/uL (0.1-0.6); Hematocrit 43.6 % (37.0-47.0); Hemoglobin 14.3 g/dL (12.0-16.0); Mean Corp Hgb Conc. 32.8 g/dL (33.0-37.0); Mean Corpuscular Hgb 28.9 pg (27.0-31.0); Mean Corpuscular Volume 88.3 fL (81.0-99.0); Mean Platelet Volume 11.9 fL (7.4-10.4); Nucleated Red Blood Cells % 0 %; Platelet Count 24 10^3/uL (130-400); Red Blood Cell Count 4.94 10^6/uL (4.20-5.40); White Blood Cell Count 14.8 10^3/uL (4.8-10.8)
== END ==
LOC: REG 09:10
PROVIDERS: ATTENDING PHYSICIAN Internal Medicine Hematology & Oncology
DX: D69.49 Other primary thrombocytopenia (principal); C91.Z0 Other lymphoid leukemia not having achieved remission
CPT/HCPCS: 36415; 85025

== ENCOUNTER → 2024-10-04 11:14 | Outpatient (REF) | payer BC, SELFPAY ==
[2024-10-04 12:02] LABS: % Basophils 0.3 % (0-2); % Eosinophils 0.1 % (0-6); % Immature Granulocytes 2.2 % (0-0.5); % Lymphocytes 6.2 % (20.5-51.1); % Monocytes 1.7 % (1.7-9.3); % Neutrophils 89.5 % (42.2-75.2); Absolute Immature Granulocytes 0.3 10^3/uL (0-0.05); Absolute Lymphocytes 0.8 10^3/uL (1.2-3.4); Absolute Monocytes 0.2 10^3/uL (0.1-0.6); Absolute Neutrophils 11.8 10^3/uL (1.4-6.5); Hematocrit 43.6 % (37.0-47.0); Hemoglobin 14.8 g/dL (12.0-16.0); Mean Corp Hgb Conc. 33.9 g/dL (33.0-37.0); Mean Corpuscular Volume 88.3 fL (81.0-99.0); Mean Platelet Volume 9.9 fL (7.4-10.4); Nucleated Red Blood Cells % 0 %; Platelet Count 115 10^3/uL (130-400); Red Blood Cell Count 4.94 10^6/uL (4.20-5.40); Red Cell Dist. Width 14.2 % (11.5-14.5); White Blood Cell Count 13.2 10^3/uL (4.8-10.8)
== END ==
LOC: REG 11:14
PROVIDERS: ATTENDING PHYSICIAN Internal Medicine Hematology & Oncology; FAMILY PHYSICIAN Family Medicine
DX: D69.49 Other primary thrombocytopenia (principal); C91.Z0 Other lymphoid leukemia not having achieved remission
CPT/HCPCS: 36415; 85025

== ENCOUNTER 2024-10-13 06:28 | Day surgery (SDC) | payer BC, SELFPAY ==
[2024-10-06 08:48] LABS: Hematocrit 42.3 % (37.0-47.0); Hemoglobin 14.1 g/dL (12.0-16.0); Mean Corp Hgb Conc. 33.3 g/dL (33.0-37.0); Mean Corpuscular Hgb 29.9 pg (27.0-31.0); Mean Corpuscular Volume 89.8 fL (81.0-99.0); Mean Platelet Volume 9.4 fL (7.4-10.4); Platelet Count 133 10^3/uL (130-400); Red Blood Cell Count 4.71 10^6/uL (4.20-5.40); Red Cell Dist. Width 14.2 % (11.5-14.5); White Blood Cell Count 13.2 10^3/uL (4.8-10.8)
[2024-10-06 09:01] LABS: Blood Urea Nitrogen 12 mg/dl (7-17); Calcium 8.9 mg/dl (8.4-10.2); Carbon Dioxide 30 mmol/L (22-30); Chloride 104 mmol/L (98-107); Glucose 74 mg/dl (70-99); Sodium 140 mmol/L (135-145); eGFR > 60.00
[2024-10-06 12:08] VITALS: BMI 29.7
[2024-10-13] VITALS (17 sets, daily range): BP systolic 94–130; BP diastolic 58–80; BMI 29.7
[2024-10-13] MEDS: VANCOCIN 530 MG IV (08:06)
[2024-10-13 08:53] LABS: % Basophils 0.6 % (0-2); % Eosinophils 1.7 % (0-6); % Immature Granulocytes 1.8 % (0-0.5); % Monocytes 8.2 % (1.7-9.3); % Neutrophils 57.7 % (42.2-75.2); Absolute Basophils 0.1 10^3/uL (0-0.2); Absolute Eosinophils 0.2 10^3/uL (0-0.7); Absolute Immature Granulocytes 0.2 10^3/uL (0-0.05); Absolute Lymphocytes 3.2 10^3/uL (1.2-3.4); Absolute Monocytes 0.9 10^3/uL (0.1-0.6); Absolute Neutrophils 6.2 10^3/uL (1.4-6.5); Hematocrit 40.8 % (37.0-47.0); Hemoglobin 13.4 g/dL (12.0-16.0); Mean Corp Hgb Conc. 32.8 g/dL (33.0-37.0); Mean Corpuscular Hgb 29.1 pg (27.0-31.0); Mean Corpuscular Volume 88.5 fL (81.0-99.0); Mean Platelet Volume 9.2 fL (7.4-10.4); Nucleated Red Blood Cells % 0 %; Platelet Count 181 10^3/uL (130-400); Red Blood Cell Count 4.61 10^6/uL (4.20-5.40); Red Cell Dist. Width 14.4 % (11.5-14.5); White Blood Cell Count 10.8 10^3/uL (4.8-10.8)
--- NOTE | 2024-10-13 09:32 | W.SUR.PREOP ---
Pre-Operative Surgical Note
-
I have examined this patient prior to the performance of the scheduled procedure.
The patient's condition is unchanged from the time of the current History and
Physical and the patient is able to undergo the scheduled procedure.
--- NOTE | 2024-10-13 12:24 | W.IMMPOSTOP ---
Addendum entered and electronically signed by Fernandez Robertson MD 10/13/24 12:37:
The assistance of Dilia Diane PA-C was required due to the complexity of the procedure. During the procedure Dilia Diane PA-C assisted with port placement, robotic instrumentation and suction irrigation as necessary, and closure of the surgical
incision sites. I was present for the entirety of the operative procedure.
#[id number]
Original Note:
Surgical Immed Post Op Note
-
Primary Surgeon: Marcelo
Assisting Surgeon: Dilia Diane PA-C
Pre-op Diagnosis: Refractory ITP
Post-op Diagnosis: Refractory ITP
Procedure Performed: Robotic assisted laparoscopic splenectomy
Anesthesia Type: GETA +0.25% Marcaine
Specimen / Cultures: Morcellated spleen/none
Estimated Blood Loss: 14 mL
Complications: None immediate
Operative Findings: Splenectomy completed intact. No disruption during procedure. No accessory spleen's identified/visualized on cursory inspection.
Plan: Routine postoperative supportive care, probable DC tomorrow.
Postoperative steroid taper as per hematology recommendations
[2024-10-13] MEDS: ZOFRAN 4 MG IV (16:03)
[2024-10-13] MEDS: TORADOL 10 MG IV ×2 (17:50→23:56)
[2024-10-13] MEDS: XANAX 0.25 MG PO (20:17)
[2024-10-13] MEDS: LR IV (20:18)
[2024-10-13] MEDS: LR 1000 IV (20:18)
[2024-10-13] MEDS: COLACE PO (20:19)
--- NOTE | 2024-10-13 23:15 | PTCARENOTE ---
Pt arrived from PACU at aprox 1515. Pt vitals have remained stable. No c/o pain. Pt did have some nausea relieved by zofran. Pt has lap incisions to abd glued and open to air. Ghosh draining clear yellow urine. Pt instructed to ring for assistance.
[2024-10-14 03:38] VITALS: BP 109/60
[2024-10-14] MEDS: SYNTHROID 75 MCG PO (04:27)
[2024-10-14] MEDS: LR 1000 IV (04:27)
[2024-10-14 07:03] LABS: Hematocrit 37.4 % (37.0-47.0); Hemoglobin 12.7 g/dL (12.0-16.0); Mean Corpuscular Volume 88.2 fL (81.0-99.0); Mean Platelet Volume 9.4 fL (7.4-10.4); Platelet Count 211 10^3/uL (130-400); Red Blood Cell Count 4.24 10^6/uL (4.20-5.40); Red Cell Dist. Width 14.3 % (11.5-14.5); White Blood Cell Count 12.7 10^3/uL (4.8-10.8)
[2024-10-14 07:18] VITALS: BP 110/57
[2024-10-14] MEDS: DELTASONE 50 MG PO (08:22)
[2024-10-14] MEDS: PEPCID 20 MG PO (08:22)
[2024-10-14] MEDS: TORADOL 10 MG IV (08:23)
[2024-10-14] MEDS: COLACE 100 MG PO (08:23)
[2024-10-14 11:46] VITALS: BP 117/67
--- NOTE | 2024-10-14 11:48 | W.PN.GS2 ---
Addendum entered and electronically signed by Mitchel Fortune MD 10/14/24 12:03:
I saw and examined the patient.
The Supervisor [employer]'s note was reviewed and I agree with the note.
Comment: Feels well, denies pain other than some mild LUQ soreness (expected), denies n/v. Ambulating and voiding. Exam approp. Labs stable. Plan to ADAT, possible DC later today.
Original Note:
Today's Communication / Plan
-
Advance diet
Dispo planning
Assessment / Plan
-
69 yo female with h/o refractory ITP now POD #1 RAL splenectomy in management
AFVSS
Labs stable post op
Following expected post operative course
--Advance diet as tolerated
--C/W prednisone, will be discharged on taper from her specialist physician
--Analgesics as needed
--D/C IVF
--C/W home po meds
--SCD's for VTE ppx
Tentative d/c later today vs tomorrow pending diet tolerance
Subjective Data
-
Date of Service: October 14, 2024
Patient seen and examined at bedside. Denies n/v. Some belching but passing flatus. Pain is minimal. voiding without difficulty.
Objective Data
-
Intake and Output
10/13/24 10/14/24 10/15/24
06:59 06:59 06:59
Intake Total 2300 / 2300
Output Total 3300 / 3300
Balance -1000 / -1000
Intake:
IV fluids (Total) 2300 / 2300
Normosal 300 / 300
Output:
Urine, Ghosh 2800 / 2800
Urine, Voided 500 / 500
Other:
Number of approximated MODERATE 2
amounts of urine
Vital Signs
Temp Pulse Resp BP Pulse Ox
98.5 F 70 16 117/67 97
10/14/24 11:46 10/14/24 11:46 10/14/24 11:46 10/14/24 11:46 10/14/24 11:46
Lab Results
10/14/24 06:11
10/06/24 07:31
Calcium 8.9 mg/dl (8.4-10.2) 10/06/24 07:31
Physical Exam
-
NAD
ABD soft, nt, nd
Incisions well approximated, no erythema, intact glue
--- NOTE | 2024-10-14 13:58 | W.DS.TRANS ---
DC Summary - [employer] Supervisor
-
Discharge Instructions:
Sleep Apnea Risk Low
Discharge Diagnosis/Procedures Refractory ITP; robotic assisted laparoscopic
splenectomy
Diet As tolerated,Regular
Additional Diets Smaller meals initially after surgery as
abdominal bloating and distention are common for
the first few days.
Activity No strenuous activity
Additional Activity No lifting over 15 to 20 pounds for 4 weeks
postoperatively
Driving Restrictions No driving for 2 to 4 days or if using narcotics
Bathing Restrictions OK to Shower
Wound Care Glue at surgical sites typically peels off in 2
to 3 weeks
Instructions:
Stand-Alone Forms:
Changes to Home Medications: No
Discharge Medications:
DC Medications w/original date entered in [facility]
levothyroxine 75 mcg tablet 75 mcg PO DAILY 10/05/22
acetaminophen 325 mg tablet (Tylenol) 650 mg PO Q4HPRN PRN mild pain 09/07/24
alprazolam 0.25 mg tablet (Xanax) 0.25 mg PO DAILY PRN insomnia 10/06/24
famotidine 20 mg tablet (Pepcid) 20 mg PO DAILY 10/06/24
prednisone 50 mg tablet 50 mg PO DAILY 10/06/24
tramadol 50 mg tablet 25 - 50 mg (0.5 - 1 x 50 mg) PO Q6HPRN PRN severe pain/breakthrough pain #8 tabs 10/14/24
Home Medication Changes
Pending Results: No
--- NOTE | 2024-10-14 14:24 | CM ---
Met with pt at bedside
Reports lives with in a ranch style home; 1 step to enter
Independent, employed as RN, driving
DME - none
SNF/HH - denied past hx
Has ride at discharge
PCP - Martín Vasquez
Pharm - [facility]
Plan - anticipate home no needs
[2024-10-14 14:38] VITALS: BP 121/60
== END 2024-10-14 15:38 | disposition home or self-care (01) ==
LOC: SDS 06:28
PROVIDERS: ATTENDING PHYSICIAN Surgery; FAMILY PHYSICIAN Family Medicine
DX: D69.3 Immune thrombocytopenic purpura (principal)
CPT/HCPCS: 38120; 88305; 80048; 85025; 85027; 86850; 86900; 86901; 93005

== ENCOUNTER → 2024-11-06 14:37 | Outpatient (REF) | payer BC, SELFPAY | LOC: HWRAD 14:37 | PROVIDERS: ATTENDING PHYSICIAN Internal Medicine Hematology & Oncology; FAMILY PHYSICIAN Family Medicine | DX: D69.49 Other primary thrombocytopenia (principal); C91.Z0 Other lymphoid leukemia not having achieved remission; R05.1 Acute cough | CPT/HCPCS: 71046 ==

== ENCOUNTER 2025-02-16 06:29 | Day surgery (SDC) | payer BC, SELFPAY | END 2025-02-16 15:17 | disposition home or self-care (01) | LOC: GI 06:29 | PROVIDERS: ATTENDING PHYSICIAN Internal Medicine Gastroenterology | DX: Z12.11 Encounter for screening for malignant neoplasm of colon (principal); D12.4 Benign neoplasm of descending colon; K57.30 Diverticulosis of large intestine without perforation or abscess without bleeding; K64.8 Other hemorrhoids | CPT/HCPCS: 45385; 88305 ==

== ENCOUNTER → 2025-03-09 11:21 | Outpatient (REF) | payer BC, SELFPAY ==
[2025-03-09 12:14] LABS: % Eosinophils 2.5 % (0-6); % Immature Granulocytes 0.1 % (0-0.5); % Lymphocytes 41.6 % (20.5-51.1); % Monocytes 11.6 % (1.7-9.3); % Neutrophils 43.2 % (42.2-75.2); Absolute Basophils 0.1 10^3/uL (0-0.2); Absolute Eosinophils 0.2 10^3/uL (0-0.7); Absolute Lymphocytes 3.2 10^3/uL (1.2-3.4); Absolute Monocytes 0.9 10^3/uL (0.1-0.6); Absolute Neutrophils 3.3 10^3/uL (1.4-6.5); Hematocrit 39.8 % (37.0-47.0); Hemoglobin 13.6 g/dL (12.0-16.0); Mean Corp Hgb Conc. 34.2 g/dL (33.0-37.0); Mean Corpuscular Hgb 29.6 pg (27.0-31.0); Mean Corpuscular Volume 86.5 fL (81.0-99.0); Mean Platelet Volume 9.9 fL (7.4-10.4); Nucleated Red Blood Cells % 0 %; Platelet Count 388 10^3/uL (130-400); Red Cell Dist. Width 14.9 % (11.5-14.5); White Blood Cell Count 7.7 10^3/uL (4.8-10.8)
== END ==
LOC: REG 11:21
PROVIDERS: FAMILY PHYSICIAN Family Medicine
DX: D69.49 Other primary thrombocytopenia (principal); C91.Z0 Other lymphoid leukemia not having achieved remission; R05.1 Acute cough
CPT/HCPCS: 36415; 85025

== ENCOUNTER → 2025-04-18 14:32 | Outpatient (REF) | payer BC, SELFPAY | LOC: CLAB 14:32 | PROVIDERS: Pathology Anatomic Pathology & Clinical Pathology; ATTENDING PHYSICIAN Dermatology Dermatopathology | DX: D48.5 Neoplasm of uncertain behavior of skin (principal) | CPT/HCPCS: 88305 ==

== ENCOUNTER → 2025-04-24 06:03 | Outpatient (REF) | payer BC, SELFPAY ==
[2025-04-24 09:42] LABS: ALT (SGPT) 25 U/L (0-35); AST (SGOT) 24 U/L (14-36); Albumin 3.9 g/dl (3.5-5.0); Alkaline Phosphatase 90 U/L (38-126); Blood Urea Nitrogen 14 mg/dl (7-17); Calcium 9.8 mg/dl (8.4-10.2); Carbon Dioxide 28 mmol/L (22-30); Chloride 109 mmol/L (98-107); Direct Bilirubin 0.3 mg/dl (0.0-0.4); Glucose 104 mg/dl (70-99); Potassium 4.5 mmol/L (3.5-5.1); Sodium 141 mmol/L (135-145); Total Protein 6.3 g/dl (6.3-8.2); eGFR > 60.00
== END ==
LOC: HWRAD 06:03
PROVIDERS: ATTENDING PHYSICIAN Nurse Practitioner; FAMILY PHYSICIAN Family Medicine
DX: R10.13 Epigastric pain (principal); R10.11 Right upper quadrant pain
CPT/HCPCS: 36415; 76700; 80048; 80076

== ENCOUNTER → 2025-05-02 13:57 | Outpatient (REF) | payer BC, SELFPAY | LOC: CLAB 13:57 | PROVIDERS: ATTENDING PHYSICIAN Physician Assistant Medical | DX: D48.5 Neoplasm of uncertain behavior of skin (principal) | CPT/HCPCS: 88305 ==

== ENCOUNTER → 2025-07-24 11:18 | Outpatient (REF) | payer BC, SELFPAY | LOC: CLAB 11:18 | PROVIDERS: ATTENDING PHYSICIAN Dermatology Dermatopathology | DX: D48.5 Neoplasm of uncertain behavior of skin (principal) | CPT/HCPCS: 88305 ==

== ENCOUNTER 2025-09-05 17:53 | Outpatient (RCR) | payer BC, SELFPAY | END 2025-09-05 23:59 | disposition home or self-care (01) | LOC: RPT 17:53 | PROVIDERS: ATTENDING PHYSICIAN Student in an Organized Health Care Education/Training Program; FAMILY PHYSICIAN Family Medicine | DX: M76.71 Peroneal tendinitis, right leg (principal); M25.571 Pain in right ankle and joints of right foot; Z73.6 Limitation of activities due to disability; R26.2 Difficulty in walking, not elsewhere classified; M62.81 Muscle weakness (generalized) | CPT/HCPCS: 97010; 97110; 97112; 97140; 97162 ==

== ENCOUNTER 2025-10-23 05:49 | Day surgery (SDC) | payer BC, SELFPAY ==
[2025-10-16 08:55] LABS: Hematocrit 41.7 % (37.0-47.0); Hemoglobin 14.1 g/dL (12.0-16.0); Mean Corp Hgb Conc. 33.8 g/dL (33.0-37.0); Mean Corpuscular Volume 88.9 fL (81.0-99.0); Platelet Count 424 10^3/uL (130-400); Red Cell Dist. Width 13.9 % (11.5-14.5)
--- NOTE | 2025-10-16 13:05 | PTCARENOTE ---
Abnormal ECG done 10/16/[address] Burgos, no further interventions requested.
[2025-10-16 13:10] LABS: Blood Urea Nitrogen 11 mg/dl (7-17); Calcium 9.2 mg/dl (8.4-10.2); Carbon Dioxide 26 mmol/L (22-30); Chloride 106 mmol/L (98-107); Glucose 89 mg/dl (70-99); Potassium 4.4 mmol/L (3.5-5.1); Sodium 137 mmol/L (135-145); eGFR > 60.00
[2025-10-16 13:20] VITALS: BMI 29.8
[2025-10-23] VITALS (11 sets, daily range): BP systolic 108–139; BP diastolic 61–83; BMI 29.8
[2025-10-23] MEDS: HEPARIN 5000 UNITS SC (06:31)
[2025-10-23] MEDS: NORMOSOL-R/PLASMALYTE-A 1000 IV (06:43)
[2025-10-23] MEDS: DILAUDID 0.25 MG IV (09:34)
[2025-10-23] MEDS: DILAUDID 0.5 MG IV (09:59)
[2025-10-23] MEDS: ZOFRAN 4 MG IV (11:53)
== END 2025-10-23 12:00 | disposition home or self-care (01) ==
LOC: SDS 05:49
PROVIDERS: ATTENDING PHYSICIAN Obstetrics & Gynecology; FAMILY PHYSICIAN Family Medicine; OTHER PHYSICIAN Internal Medicine Cardiovascular Disease
DX: N81.3 Complete uterovaginal prolapse (principal); N39.3 Stress incontinence (female) (male); N36.41 Hypermobility of urethra
CPT/HCPCS: 57425; 58542; 57250; 57288; 80048; 85027; 86850; 86900; 86901; 88305; 88307; 88311; 93005; C1763; C1771